=== PATIENT | male | born 1935 | race Caucasian/White ===

== ENCOUNTER 2020-11-30 15:19 | Inpatient (IN) | payer OTHER ==
[~2020-11-30] VITALS: Ht 190.5 cm; Wt 68.6 kg
[2020-11-30 15:35] LABS: Calcium, Ionized (POC) 1.12 mmol/L (1.10-1.46); Chloride (POC) 110 mmol/L (98-108); Creatinine (POC) 1.8 mg/dL (0.8-1.3); Glucose (ISTAT POC) 120 mg/dL (70-99); Hemoglobin (POC) 15.3 g/dL (13.5-17.5); Potassium (POC) 4.3 mmol/L (3.5-5.5); Sodium (POC) 141 mmol/L (135-148); Total CO2 (POC) 21 mmol/L (21-32)
[2020-11-30] MEDS ORDERED: MIRT15 PO (16:00)
[2020-11-30] MEDS ORDERED: ASPIR 8181 M1 PO (16:00)
[2020-11-30] MEDS ORDERED: CARV3.125 PO ×2 (16:01→16:02)
[2020-11-30] MEDS ORDERED: Magnesium Oxid420 MG PO (16:02)
[2020-11-30] MEDS ORDERED: TAMS.4ER PO (16:03)
[2020-11-30] MEDS ORDERED: FINA5 PO (16:03)
[2020-11-30 16:24] LABS: BASOPHILS ABSOLUTE AUTO 0.04 K/mm3 (0.00-0.23); BASOPHILS PERCENT AUTO 0 % (0-2); EOSINOPHILS ABSOLUTE AUTO 0.01 K/mm3 (0.00-0.68); EOSINOPHILS PERCENT AUTO 0 % (0-6); Hematocrit 44.8 % (37.0-53.0); Hemoglobin 15.1 g/dL (13.5-17.5); IMMATURE GRAN ABSOLUTE AUTO 0.08 K/mm3 (0.00-0.10); IMMATURE GRAN PERCENT AUTO 1 % (0-1); LYMPHOCYTES ABSOLUTE AUTO 0.86 K/mm3 (0.84-5.20); LYMPHOCYTES PERCENT AUTO 5 % (21-46); MONOCYTES ABSOLUTE AUTO 1.33 K/mm3 (0.16-1.47); MONOCYTES PERCENT AUTO 8 % (4-13); Mean Corpuscular HGB 31.5 pg (26.0-34.0); Mean Corpuscular HGB Conc 33.7 g/dL (31.5-36.5); Mean Corpuscular Volume 93 fL (80-100); Mean Platelet Volume 11.7 fL (9.1-12.4); NEUTROPHILS ABSOLUTE AUTO 15.21 K/mm3 (1.96-9.15); NEUTROPHILS PERCENT AUTO 87 % (41-73); Platelet Count 197 K/mm3 (150-400); RDW Coefficient Variation 12.1 % (11.7-14.2); RDW Standard Deviation 41.8 fL (35.1-46.3); White Blood Cell Count 17.53 K/mm3 (4.00-11.30)
[2020-11-30 16:37] LABS: Source, Urine Catheter
[2020-11-30 16:40] LABS: Albumin, Blood 3.6 g/dL (3.4-5.0); Albumin/Globulin Ratio 0.9 (0.8-1.8); Bilirubin, Total 0.9 mg/dL (0.1-1.0); Bun/Creatinine Ratio 27.8 (12.0-20.0); Calcium, Blood 9.3 mg/dL (8.5-10.1); Creatinine, Blood 1.58 mg/dL (0.60-1.20); Globulin, Blood 4.1 g/dL (2.2-4.0); Potassium, Blood 4.3 mmol/L (3.5-5.5); Total Protein, Blood 7.7 g/dL (6.4-8.2); Troponin I 0.036 ng/mL (0.000-0.040)
[2020-11-30 16:52] LABS: Appearance, Urine Clear (Clear); Bilirubin, Urine Neg (Neg); Blood, Urine 3+ (Neg); Color, Urine Amber (P-Yellow); Glucose Qualitative, Urine Neg (Neg); Ketones, Urine 1+ (Neg); Leukocyte Esterase, Urine 3+ (Neg); Nitrite, Urine Neg (Neg); Protein, Urine 2+ (Neg); Urobilinogen, Urine NORM (Normal)
[2020-11-30 17:05] LABS: White Blood Cells, Urine 50-100 /hpf (0-5)
[2020-11-30 17:06] LABS: Bacteria Many /hpf; Squamous Epithelial Cells Not Seen /hpf (Few)
--- NOTE | 2020-11-30 17:33 | NUR ---
ED Palliative Care Consult Spoke with Dr Grant and discussed case. Pt's daughter may benefit from discussion regarding goals of care and options for treatment. Pt resting on gurney upon arrival. Pt is pleasantly confused and is A&OX2. Pt appears comfortable with no S/S of distress at this time. Pt's daughter Lori is at bedside. Engaged in therapeutic listening as Lori reports at baseline Pt is independent with ambulation, dressing, bathing, eating, and is continent of bowel and bladder. Over the last couple of days Pt has become increasingly confused and weak. Pt not able to transfer or ambulate. 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 Continued therapeutic listening as Lori reports she is not in a position to care for Pt at this time. She is unable to get Pt off the floor by herself if he falls. Pt lives with Lori. Lori reports being Pt's MPOA. Obtained copies of Pt's advanced directive from Lori and will deliver copy to medical records. Lori reports Pt would be ok with brief hospital stay and basic treatment but would not want anything invasive. Pt is a DNR and No Intubation. Lori expresses appreciation of visit and reports no other concerns at this time. Spoke with Dr Grant. He reports Pt will be admitted. Relayed Pt's wishes for basic medical treatment. Palliative Care will F/U for supportive visits once admitted to the floor.
--- NOTE | 2020-12-01 07:26 | NUR ---
evening or night nurse supervisor summary Kevin was awake all night struggling to get oob and "go home". Multiple large incontinent stools soft/mushy brown in color. Patient did manage to pull two IV's overnight, and was quite distraught at 3rd attempt (successful) placing a third in the left wrist. HR when checked apically was irregular in the 110-130 range as it was in ER. one set of VS taken around 0530 with capsule registered a rate of 172. HR manually checked minutes prior more in tune with his regular rate. Oncoming RN given this information in report stated she would like tele placed on patient and will discuss it with hospitalist.
[2020-12-01 12:24] LABS: BASOPHILS ABSOLUTE AUTO 0.05 K/mm3 (0.00-0.23); BASOPHILS PERCENT AUTO 0 % (0-2); EOSINOPHILS ABSOLUTE AUTO 0.02 K/mm3 (0.00-0.68); EOSINOPHILS PERCENT AUTO 0 % (0-6); Hematocrit 45.4 % (37.0-53.0); Hemoglobin 15.4 g/dL (13.5-17.5); IMMATURE GRAN ABSOLUTE AUTO 0.05 K/mm3 (0.00-0.10); IMMATURE GRAN PERCENT AUTO 0 % (0-1); LYMPHOCYTES PERCENT AUTO 5 % (21-46); MONOCYTES ABSOLUTE AUTO 1.23 K/mm3 (0.16-1.47); MONOCYTES PERCENT AUTO 8 % (4-13); Mean Corpuscular HGB 32.5 pg (26.0-34.0); Mean Corpuscular HGB Conc 33.9 g/dL (31.5-36.5); Mean Corpuscular Volume 96 fL (80-100); Mean Platelet Volume 11.2 fL (9.1-12.4); NEUTROPHILS ABSOLUTE AUTO 13.08 K/mm3 (1.96-9.15); NEUTROPHILS PERCENT AUTO 87 % (41-73); Platelet Count 169 K/mm3 (150-400); RDW Coefficient Variation 12.2 % (11.7-14.2); RDW Standard Deviation 43.3 fL (35.1-46.3); Red Blood Cell Count 4.74 M/mm3 (4.30-5.90); White Blood Cell Count 15.13 K/mm3 (4.00-11.30)
[2020-12-01 12:52] LABS: Bun/Creatinine Ratio 25.7 (12.0-20.0); Calcium, Blood 8.9 mg/dL (8.5-10.1); Creatinine, Blood 1.71 mg/dL (0.60-1.20); Magnesium, Blood 2.6 mg/dL (1.6-2.4); Potassium, Blood 4.2 mmol/L (3.5-5.5)
[2020-12-01] MEDS ORDERED: THERA-D2000 UNIT PO (14:54)
--- NOTE | 2020-12-01 17:14 | NUR ---
SHIFT SUMMARY PT IS AO TO SELF AND CONFUSED. PT DENIES PAIN, N/V, SOB. PT CONTINUES TO HAVE SOFT STOOLS. PT IS IN BL WRIST RESTRAINTS DUE TO PULLING X3 IVS. TELE CONTINUES TO RUN AFIB 110-120 CURRENTLY, BUT WENT HIGH 180S WHICH RESOLVED WITH FLUID BOLUS. PT HAS GOOD APPETITE. NO PROCEDURES DONE THIS SHIFT. PT DID NOT HAVE VISITORS. PLAN IS FOR PT TO TRANSFER TO ROOM 351. PT IS IN BED, ALARM ON, LOW POSITION.
--- NOTE | 2020-12-01 18:35 | NUR ---
PT RECEIVED FROM RM 130. REPORT RECEIVED FROM DAY RN. SETTLED PT TO BED AND ROOM. HE STATES IS RETIRED [employer]. CALLED TELE. THEY STATES HE IN 130'S TO 140'S. HANGING AT 130'S NOW. DISCUSSED WITH DR. LERMA. ORDERS FOR BOLUS AND INCREASE RATE TO 125/ NO OTHER CONCERNS NOTED . IS IN WRIST RESTRAINTS FOR PULLING IVS X3 . BED IN LOW POSITION, CALL LITE IN REACH, BED ALARM ON FOR SAFETY
--- NOTE | 2020-12-02 04:44 | NUR ---
SHIFT SUMMARY PT ALERT TO SELF ONLY. SLEPT OFF AND ON THROUGH THE NIGHT. PT VOIDING VERY LITTLE. LOWER ABD DISTENDED AND FIRM. PT REPORTING PAIN WHEN PALPATED. BLADDER SCAN READING >[address] CEE NOTIFIED WITH ORDERS TO STRAIGHT CATH X 1 AND BLADDER SCAN 6 HOURS LATER. STRAIGHT CATH WITH 975 MLS OUT, BLOOD CLOTS PRESENT WITH INITIAL START OF FLOW OF URINE. URINE BROWN IN COLOR. PT ON TELEMETRY. HEART RATE AT START OF SHIFT AFTER 500 CC BOLUS AFIB 108. HEART RATE INCREASED TO 130'S-140'S AND THEN 150'S-160'S. NEW ORDER FOR ONE TIME DOSE OF METOPROLOL TARTRATE 12.5 MG. PT ALSO RESTLESS AT THE TIME. REPOSITIONED FOR COMFORT. HEART RATE DOWN TO 110 WITH LAST CHECK. ATTEMPTED MANY TIMES TO GET PT TO EAT DINNER. PT DECLINED. BILATERAL WRIST RESTRAINTS REMAINED ON TO PROTECT LINES. VITAL SIGNS STABLE. PT RESTING IN BED AT THIS TIME. WILL CONTINUE TO MONITOR.
[2020-12-02 04:51] LABS: BASOPHILS ABSOLUTE AUTO 0.04 K/mm3 (0.00-0.23); BASOPHILS PERCENT AUTO 0 % (0-2); EOSINOPHILS ABSOLUTE AUTO 0.03 K/mm3 (0.00-0.68); EOSINOPHILS PERCENT AUTO 0 % (0-6); Hematocrit 39.6 % (37.0-53.0); Hemoglobin 13.4 g/dL (13.5-17.5); IMMATURE GRAN ABSOLUTE AUTO 0.04 K/mm3 (0.00-0.10); IMMATURE GRAN PERCENT AUTO 0 % (0-1); LYMPHOCYTES ABSOLUTE AUTO 0.68 K/mm3 (0.84-5.20); LYMPHOCYTES PERCENT AUTO 5 % (21-46); MONOCYTES ABSOLUTE AUTO 0.91 K/mm3 (0.16-1.47); MONOCYTES PERCENT AUTO 7 % (4-13); Mean Corpuscular HGB 32.8 pg (26.0-34.0); Mean Corpuscular HGB Conc 33.8 g/dL (31.5-36.5); Mean Corpuscular Volume 97 fL (80-100); Mean Platelet Volume 11.3 fL (9.1-12.4); NEUTROPHILS ABSOLUTE AUTO 10.81 K/mm3 (1.96-9.15); NEUTROPHILS PERCENT AUTO 87 % (41-73); Platelet Count 143 K/mm3 (150-400); RDW Coefficient Variation 12.3 % (11.7-14.2); RDW Standard Deviation 44.5 fL (35.1-46.3); Red Blood Cell Count 4.08 M/mm3 (4.30-5.90); White Blood Cell Count 12.51 K/mm3 (4.00-11.30)
[2020-12-02 05:09] LABS: Albumin, Blood 2.4 g/dL (3.4-5.0); Anion Gap 7 mmol/L (6-16); Blood Urea Nitrogen 53 mg/dL (8-24); Bun/Creatinine Ratio 22.7 (12.0-20.0); CO2, Blood 19 mmol/L (21-32); Chloride, Blood 116 mmol/L (98-108); Creatinine, Blood 2.33 mg/dL (0.60-1.20); Glomerular Filtration Rate 27 (60-); Glucose, Blood 109 mg/dL (70-99); Magnesium, Blood 2.4 mg/dL (1.6-2.4); Phosphorus, Blood 3.6 mg/dL (2.5-4.9); Potassium, Blood 4.2 mmol/L (3.5-5.5); Sodium, Blood 142 mmol/L (136-145)
--- NOTE | 2020-12-02 08:25 | NUR ---
BLADDER SCAN 442 CC
--- NOTE | 2020-12-02 10:00 | NUR ---
PT PLEASANTLY CONFUSED DENIES PAIN. ALERT TO SELF, DENIES OR CHILDREN, WHEN ASK WHO IS TED, HE SAYS HIS DAUGHTER. ATTEMPTED TO GET PT UP TO URINATE THIS AM. VERY STIFF. HAD HARD TIME MOVING. ABLE TO STAND, BUT NOT BALANCE WELL. H/R IRREG, NO MURMER NOTED. NO PACER NOTICED. PER TELE AFIB PRESENTLY 136. HAS TRENDED UP THIS AM FOR LAST FEW HOURS. BT X4 LAST BM NOT KNOWN BY PT. PT HAS HAD SMALL FORMED BROWN STOOL THIS MOMENT. VIODS SCANT IN ATTENDS. DID NOT URINATE WHEN STOOD UP. SMALL DROPS DARK RED LIQUID ONLY . [place] PLACED PER DR ORDERS. DID DRAIN OUT 4-500 INTO BAG. DARK TEA COLORED FLUID. BED INLOW POSITION, CALL LITE IN REACH, BED ALARM ON FOR SAFETY
[2020-12-02 10:45] LABS: Source, Urine Catheter
[2020-12-02 11:00] LABS: Appearance, Urine Clear (Clear); Bilirubin, Urine Neg (Neg); Blood, Urine 5+ (Neg); Color, Urine Yellow (P-Yellow); Glucose Qualitative, Urine Neg (Neg); Ketones, Urine 1+ (Neg); Leukocyte Esterase, Urine 1+ (Neg); Nitrite, Urine Neg (Neg); Protein, Urine 3+ (Neg); Specific Gravity, Urine 1.015 (1.003-1.022); Urobilinogen, Urine NORM (Normal)
--- NOTE | 2020-12-02 11:04 | NUR ---
DR NOTIFIED OF SCROTAL AND INGUINAL SWELLING, URINE RETENTION THIS AM. ORDERS WERE GIVEN FOR U/S AND [place] CATH. DONE.
[2020-12-02 11:20] LABS: Bacteria Few /hpf; Red Blood Cells, Urine 25-50 /hpf (0-2); Squamous Epithelial Cells Rare /hpf (Few)
--- NOTE | 2020-12-02 13:30 | NUR ---
1330 TELE CALLED, PT HAD 6 BET RUN VTAC. PT RESTING, ASYMPTOMATIC. CURRENTLY AFIB AT 114.
--- NOTE | 2020-12-02 14:33 | NUR ---
PLACED EGG CRATE UNDER PT FOR COMFORT. PT AWAKENS TO TALK. ANSWERS QUESTIONS. SOME APPROP AND SOME NOT. NEW ABX STARTED PER DR ORDERS. [place] DRAINING DARK BROWN FLUID. DR WAS NOTIFIED AT [place] INSERTION. BED IN LOW POSITION, CALL LITE IN REACH, BED ALARM ON FOR SAFETY
--- NOTE | 2020-12-02 15:19 | NUR ---
Met with pt and his daughter Lori who has been primary care for him for 10 years. Pt has advanced dementia, lives with his daughter and has been quite physically healthy despite the dementia. Lori noted he recently became increasingly confused and wasn't urinating. She brought him to the ED, and he was admitted with Sepsis/UTI. He is extremely weak, and unable to make his wants and needs known at this time. Lori is tearful at this visit, telling me she feels like this might be the "beginning of the end" for her dad. She states she knows it's time to work on placing him, as she has just started a new job as a nurse at the [employer], she is currently in her probationary period and has no time off yet. We discussed in detail what hospice services entail, and she is hoping to get pt placed at the [facility] if possible, if he qualifies for hospice. It's likely he will, based on dementia x's 10 years, BMI, and latest issues. However, he is not ready for discharge from the hospital yet, and Lori states if her dad doesn't begin to improve, she is interested in looking at the options sooner than later instead of "just prolonging things". She states quality of life is of utmost importance. Plan to review pt's case in 2 days, and remain available for supportive care visits with/for Lori.
--- NOTE | 2020-12-02 16:09 | NUR ---
PT PLEASANTLY CONFUSED. DOES AWAKEN TO TOUCH OR TALK. DOES FALL ASLEEP READILY. DAUGHTER IN TO VISIT TODAY. HAD GOOD TALK WITH HER. STATES HE INDEPENDANT BUT CONFUSED AT BASELINE . DID GO TO [facility] FOR BREAKFAST LAST WEEK. ABLE TO AMBULATE. CARE FOR BASIC NEEDS ON OWN. SHE IS HOPING THIS WILL TURN AROUND FOR HIM UTI CLEARS. DID HAVE 6 BEAT RUN VTAC TODAY. ASYMPTOMATIC. KAREN FROM [facility] ON BOARD. DR AWARE OF CONDITION. NO NEW CONCERNS NOTED TODAY BED IN LOW POSITIOIN, CALL LITE IN REACH, BED ALARM ON FOR WILTON
--- NOTE | 2020-12-02 18:14 | NUR ---
PT JUST WOKE UP. TALKING SENSE. DAUGHTER IN ROOM. PT EATING DINNER WITHOUT ASSISTANCE. PT QUITE PLEASANT AND COOP. HANDS NOW STEADY, BED IN LOW POSITION, CALL LITE IN REACH, BED ALARM ON FOR SAFETY
--- NOTE | 2020-12-02 19:11 | NUR ---
1830 pt h/r up to 170-180. called , orders for metoprolol coming. gave metoprolol. h/r after admin is one-teens to 120. bp 105/53 passed info to ankush rodriguez. pt is calm and talking. eating dinner. bed in low position, call lite in reach, bed alarm on for safety
--- NOTE | 2020-12-03 04:41 | NUR ---
SHIFT SUMMARY PT MUCH MORE ALERT THIS EVENING. ANSWERING QUESTIONS APPROPRIATELY. PT AT BELIEVED BASELINE LEVEL OF DEMENTIA. PT SLEPT MUCH OF THE NIGHT. WOKE EASILY WHEN SPOKEN TO. [place] CATHETER PATENT AND DRAINING. URINE DARK AND BROWN IN COLOR. PT REMAINED OUT OF RESTRAINTS. DID NOT ATTEMPT TO GET OUT OF BED OR PULL ON LINES. TELEMETRY READING AFIB IN THE 100'S-110'S. PT REPORTS FEELING MUCH IMPROVED TONIGHT. VITAL SIGNS STABLE. WILL CONTINUE TO MONITOR AND REPORT TO DAY RN.
[2020-12-03 05:16] LABS: BASOPHILS ABSOLUTE AUTO 0.04 K/mm3 (0.00-0.23); BASOPHILS PERCENT AUTO 1 % (0-2); EOSINOPHILS ABSOLUTE AUTO 0.61 K/mm3 (0.00-0.68); EOSINOPHILS PERCENT AUTO 7 % (0-6); Hematocrit 36.9 % (37.0-53.0); Hemoglobin 12.3 g/dL (13.5-17.5); IMMATURE GRAN ABSOLUTE AUTO 0.03 K/mm3 (0.00-0.10); IMMATURE GRAN PERCENT AUTO 0 % (0-1); LYMPHOCYTES ABSOLUTE AUTO 0.86 K/mm3 (0.84-5.20); LYMPHOCYTES PERCENT AUTO 10 % (21-46); MONOCYTES PERCENT AUTO 7 % (4-13); Mean Corpuscular HGB 32.1 pg (26.0-34.0); Mean Corpuscular HGB Conc 33.3 g/dL (31.5-36.5); Mean Corpuscular Volume 96 fL (80-100); Mean Platelet Volume 11.7 fL (9.1-12.4); NEUTROPHILS ABSOLUTE AUTO 6.65 K/mm3 (1.96-9.15); NEUTROPHILS PERCENT AUTO 76 % (41-73); Platelet Count 136 K/mm3 (150-400); RDW Coefficient Variation 12.4 % (11.7-14.2); RDW Standard Deviation 43.5 fL (35.1-46.3); Red Blood Cell Count 3.83 M/mm3 (4.30-5.90); White Blood Cell Count 8.79 K/mm3 (4.00-11.30)
[2020-12-03 05:31] LABS: Albumin, Blood 2.1 g/dL (3.4-5.0); Anion Gap 5 mmol/L (6-16); Blood Urea Nitrogen 43 mg/dL (8-24); Bun/Creatinine Ratio 28.3 (12.0-20.0); CO2, Blood 21 mmol/L (21-32); Calcium, Blood 7.6 mg/dL (8.5-10.1); Chloride, Blood 118 mmol/L (98-108); Creatinine, Blood 1.52 mg/dL (0.60-1.20); Glomerular Filtration Rate 44 (60-); Glucose, Blood 102 mg/dL (70-99); Phosphorus, Blood 2.4 mg/dL (2.5-4.9); Potassium, Blood 4.1 mmol/L (3.5-5.5); Sodium, Blood 144 mmol/L (136-145)
--- NOTE | 2020-12-03 07:51 | NUR ---
COREG GIVEN EARLY FOR HIGH HEART RATE. WILL RECHECK.
--- NOTE | 2020-12-03 08:45 | NUR ---
LEFT MESSAGE ON DR. COTO VOICE MAIL. HEART RATE AFIB 130'S. YESTERDAY AND DAY BEFORE WENT HIGH 170'S. MEDS FOR HEART GIVEN EARLY. NO PRN. AWAITING ORDERS OR CALL BACK.
--- NOTE | 2020-12-03 16:45 | NUR ---
LEFT MESSAGE ON VOICE MAIL. PATIENT HEART RATE HAS BEEN 130'S FOR PAST 20 MINUTES. BLD PRESSURE 108/67 DOES SHE STILL WANT LOPRESSOR GIVEN.?? AWAITING CALL BACK OR ORDERS.
--- NOTE | 2020-12-03 17:31 | NUR ---
ALERT TO SELF AND FAMILY. DEMENTIA. REPEATS QUESTIONS OFTEN BEFORE RN EVEN LEAVES ROOM. PULLS AT CAROLINA. URINE BROWN TO RED. BLOOD CLOTS WHEN CAROLINA WAS PLACED. MEDS ADJUSTED FOR HEART RATE. DAUGHTER WANTS PATIENT TO [facility] GO TO [facility] [place]OVE FROM [place] TO [place].TELE ON. [facility]
--- NOTE | 2020-12-03 18:24 | NUR ---
LEFT MESSAGE ON VOICE MAIL ABOUT PATIENT HEART RATE. COREG GIVEN 1715 AND HEART RATE HAS BEEN 130'S WITH INFREQUENT DROP. B.P. 119/65. HAVE NOT GIVEN LOPRESSOR?? PATIENT BLD PRESSURE WENT LOW YESTERDAY WHEN GIVEN LOPRESSOR. AWAITING ANY ORDERS.
[2020-12-04 05:50] LABS: BASOPHILS ABSOLUTE AUTO 0.05 K/mm3 (0.00-0.23); BASOPHILS PERCENT AUTO 1 % (0-2); EOSINOPHILS ABSOLUTE AUTO 0.64 K/mm3 (0.00-0.68); EOSINOPHILS PERCENT AUTO 9 % (0-6); Hematocrit 36.6 % (37.0-53.0); Hemoglobin 12.2 g/dL (13.5-17.5); IMMATURE GRAN ABSOLUTE AUTO 0.02 K/mm3 (0.00-0.10); IMMATURE GRAN PERCENT AUTO 0 % (0-1); LYMPHOCYTES ABSOLUTE AUTO 1.03 K/mm3 (0.84-5.20); LYMPHOCYTES PERCENT AUTO 15 % (21-46); MONOCYTES ABSOLUTE AUTO 0.59 K/mm3 (0.16-1.47); MONOCYTES PERCENT AUTO 9 % (4-13); Mean Corpuscular HGB 31.9 pg (26.0-34.0); Mean Corpuscular HGB Conc 33.3 g/dL (31.5-36.5); Mean Corpuscular Volume 96 fL (80-100); Mean Platelet Volume 11.8 fL (9.1-12.4); NEUTROPHILS ABSOLUTE AUTO 4.56 K/mm3 (1.96-9.15); NEUTROPHILS PERCENT AUTO 66 % (41-73); Platelet Count 137 K/mm3 (150-400); RDW Coefficient Variation 12.2 % (11.7-14.2); RDW Standard Deviation 42.3 fL (35.1-46.3); Red Blood Cell Count 3.83 M/mm3 (4.30-5.90); White Blood Cell Count 6.89 K/mm3 (4.00-11.30)
[2020-12-04 06:14] LABS: Calcium, Blood 7.6 mg/dL (8.5-10.1); Creatinine, Blood 1.22 mg/dL (0.60-1.20)
--- NOTE | 2020-12-04 07:20 | NUR ---
85 year old [place] with Sepsis UTI bladder outlet obstruction continues on IV fluid at 50 ml hr & IV antibiotics to treat. [place] He is confused poor historian & he had pulled at pozo cath multiple times with calls from remote camera monitoring to prevent furtherinjury pozo cath removal. Irrigated pozo with 50 ml ns to keep patent after PT CO needing to urinate. good relief of bladder spasm. Tele monitor with multiple calls for tachycardia. Cooperative with [facility] whole in [facility]. Fall precautions observed. On coreg for AFIB RVR TID, dose at 2 am.
--- NOTE | 2020-12-04 10:25 | NUR ---
UPDATED DAUGHTER, CEASAR, ON STATIS.
--- NOTE | 2020-12-04 16:57 | NUR ---
PHYSICAL THERAPY EVALUATED PATIENT. WHEN P.T. SAT PATIENT ON SIDE OF BED HEART RATE WENT UP TO 150 AFIB. WHEN PATIENT WAS LAID BACK DOWN HEART RATE TOOK ABOUT 2-3 MINUTES TO GO DOWN TO 110. WCTM
--- NOTE | 2020-12-04 18:34 | NUR ---
SINCE PHYSICAL THERAY DIFFICULT TO GET PATIENTS HEART RATE UNDER CONTROL. WAS GIVEN SCHEDULED CORG WHICH HELPED A LITTLE. GIVEN PRN LOPRESSOR WHICH HELPED. PATIENT HAD NO SYMPTOMS. ALERT TO SELF AND NOT NECESSARY FAMILY PER P.T. PATIENT TOLD HER "HE LIVES ALONE AND DOES NOT HAVE ANY FAMILY." STILL PULLS AT LINES. [place] PATENT AND DRAINING YELLOW COLORED URINE WITH SOME SMALL CLOTS. IV SALINE LOCKED. TELE ON. [facility].
--- NOTE | 2020-12-04 20:51 | NUR ---
Pt with advanced dementia , can be very pleasant & calm but also shows no insight into actions. PT was remote camera monitoring which was removed around 1700 per Day RN report. PT set up with water pudding ice cream post dinner. RN frequently in PT room & got call from telegraphic typewriter operator chief that HR sustained around 150 for several minutes & reached up to 170 momentarily. Entered PT room which was dark per his request & he was pulling on his pozo cath saying pull it out & had cath strap off & pant leg up jerking on cath. He had pulled out his IV saline lock which hed been secure with coban. Dressed IV site & will restart saline lock per tele needs & IV antibiotics Q 6 hours. Pulse rate down to around 110 now. Has 2.5 mg IV lopresser around 1840 with 1st pulse check per tele pvc monitor was 111. Medicated with HS meds whole in icecream, fed ice cream encouraged oral fluids. High fall risk precautions in place with PT with AFib with RVR on TID Coreg & Q 6 hr PRN lopressor.
--- NOTE | 2020-12-04 21:32 | NUR ---
saline lock restart lt wrist & secured with dressing & included tapes & kerlet & stockinette applied. Remided PT what IV access is for & he agrees not to remove. PT had also tore off ID band & DNR braclet. Reapplied name band to lt ankle & DNR band rt wrist.
--- NOTE | 2020-12-05 02:25 | NUR ---
85 year old Male [employer] [place] resting quietly with pozo cath patent & draining clear yellow urine. Scrotum continues edematous skin care provided. PT has high fall risk, not attempting to climb out of bed this shift. PT does not use call spain, able to communicate. Medicated with PRN lopressor 2.5 mg IV with coreg for HR 111. Await response. Tele monitoring continues rate currently 95 afib. DTR involved in DC plan, would like [facility] placement if possible. PT denies pain but has pain with touch of penis or scrotum. Currently not mobile.
--- NOTE | 2020-12-05 17:07 | NUR ---
SHIFT SUMMARY PATIENT DENIES PAIN, NAUSEA, AND SHORTNESS OF BREATH. PATIENT PLEASANTLY CONFUSED BUT ABLE TO COMMUNICATE NEEDS. WORKED WITH PT TODAY, ABLE TO SIT ON SIDE OF BED AND STAND BRIEFLY BEFORE FATIGUE AND ELEVATED HEART RATE REQUIRED SESSION TO END. PLEASANT AND COOPERATIVE WITH CARE. PENDING [facility] HOSPICE DISCHARGE.
--- NOTE | 2020-12-06 05:35 | NUR ---
Elderly Male [place] with long hx of dementia who [place] with [place] & continues on IV abx for UTI sepsis. He had bladder outlet obstruction & coude cath placed to down drain. PT no longer pulling on pozo which drained 1200 ml clear yellow urine in 6 hours. PT has tele monitor & telecommunicator supervisor reported pulse of 150s afib & pt was sutting up in bed for first time since I have worked with him in last 3 nights. I stood him at bedside with FWW & gaitbelt then got up to bedside chair for around a hour. PT has a fib with rvr pulse increases with activity & IV lopresser 2.5 mg given x 1 for such with helpful effect. PT had 1 ten beat run of vtach called by biomedical technician, PT sleeping with mild movement. He rouses easily & able to communicate. Did well getting up to bedside chair with cues fww & gait belt. Takes supplement ensure with setup & cues, fed self half a banana. Pozo patent does not attempt to remove tonight.
--- NOTE | 2020-12-06 09:37 | NUR ---
Supportive Visit Spoke with RNs Rachelle and Elisabet. Pt exoeriences intermittent hallucinations. Pt incontinent of bowel and has Amaya catheter placed. Pt's appetite is poor. Pt requires assistance with bathing, dressing, transfers. and ambulation. [facility] staff assessed [facility] yesterday to determine if appropriate for their facility. Pt resting in bed with breakfast in front of hime. Meal tray looks barely touched. Pt reports no appetite. Pt is pleasantly confused and is A&O to self and family. Pt denies pain and dyspnea. No S/S of distress at this time. Palliative Care will remain available.
--- NOTE | 2020-12-06 17:25 | NUR ---
PATIENT A/O TO SELF AND FAMILY. [place] TO GRAVITY WITH ADEQUATE U/O. VSS, A-FIB ON TELE, HR UP TO 120 WITH ACTIVITY. UP TO BSCX1 THIS SHIFT WITH GB AND 2 ASSIST. SKIN FRAGILE, WITH SCATTERED BRUISES AND SCABS. LARGE BM THIS SHIFT, PATIENT CONTINENT OF BOWEL. RECEIVING AMPICILLIN TO TREAT UTI. DAUGHTER WORKING WITH CARE MANAGERS TO FIND DATA MODELER PLACEMENT FOR PATIENT, HOSPICE HAS BEEN DISCUSSED.
--- NOTE | 2020-12-07 02:37 | NUR ---
LIVING SPECIALIST SUMMARY PATIENT SLEPT WELL THROUGH THE NIGHT DESPITE BEING WOKEN UP MULTIPLE TIMES FOR SCHEDULED MEDICATIONS. NO COMPLAINTS OF PAIN OR DISCOMFORT. [place] CATHETER DRAINING ADEQUATE AMOUNTS OF CLEAR YELLOW URINE. NO SIGNIFICANT CHANGES OVERNIGHT
[2020-12-07 09:11] LABS: BASOPHILS ABSOLUTE AUTO 0.04 K/mm3 (0.00-0.23); BASOPHILS PERCENT AUTO 1 % (0-2); EOSINOPHILS ABSOLUTE AUTO 0.59 K/mm3 (0.00-0.68); EOSINOPHILS PERCENT AUTO 8 % (0-6); Hematocrit 39.6 % (37.0-53.0); Hemoglobin 13.6 g/dL (13.5-17.5); IMMATURE GRAN ABSOLUTE AUTO 0.03 K/mm3 (0.00-0.10); IMMATURE GRAN PERCENT AUTO 0 % (0-1); LYMPHOCYTES ABSOLUTE AUTO 0.84 K/mm3 (0.84-5.20); LYMPHOCYTES PERCENT AUTO 11 % (21-46); MONOCYTES ABSOLUTE AUTO 0.59 K/mm3 (0.16-1.47); MONOCYTES PERCENT AUTO 8 % (4-13); Mean Corpuscular HGB 32.2 pg (26.0-34.0); Mean Corpuscular HGB Conc 34.3 g/dL (31.5-36.5); Mean Corpuscular Volume 94 fL (80-100); Mean Platelet Volume 10.9 fL (9.1-12.4); NEUTROPHILS ABSOLUTE AUTO 5.53 K/mm3 (1.96-9.15); NEUTROPHILS PERCENT AUTO 73 % (41-73); Platelet Count 191 K/mm3 (150-400); RDW Coefficient Variation 11.9 % (11.7-14.2); RDW Standard Deviation 41.1 fL (35.1-46.3); Red Blood Cell Count 4.22 M/mm3 (4.30-5.90); White Blood Cell Count 7.62 K/mm3 (4.00-11.30)
[2020-12-07 09:31] LABS: Anion Gap 3 mmol/L (6-16); Blood Urea Nitrogen 27 mg/dL (8-24); Bun/Creatinine Ratio 24.1 (12.0-20.0); CO2, Blood 28 mmol/L (21-32); Calcium, Blood 8.7 mg/dL (8.5-10.1); Chloride, Blood 107 mmol/L (98-108); Creatinine, Blood 1.12 mg/dL (0.60-1.20); Glomerular Filtration Rate >60 (60-); Glucose, Blood 120 mg/dL (70-99); Potassium, Blood 4.3 mmol/L (3.5-5.5); Sodium, Blood 138 mmol/L (136-145)
--- NOTE | 2020-12-07 17:40 | NUR ---
RN SHIFT SUMMARY: PT A/O TO SELF, PLEASANT AND COOPERATIVE THROUGHOUT THE DAY. ABLE TO ANSWER QUESTIONS APPROP AND FOLLOWS DIRECTIONS WELL. NO ACUTE CONCERNS AT THIS TIME. [place] PATENT AND DRAINING CLEAR YELLOW URINE. HAD LARGE SOFT FORMED BM TODAY.
--- NOTE | 2020-12-07 18:44 | NUR ---
PRN IV metoprolol given for HR sustained in the 150's at 1810. Pt denied CP, SOB, no signs of distress at time metoprolol given. HR now in the 130's at 1845. Will pass on at shift change.
--- NOTE | 2020-12-07 19:50 | NUR ---
PATIENT MORE ANXIOUS AND CONFUSED THAN LAST NIGHT. WANTS TO KNOW IF HE GETS TO TAKE HOME PILLOWS AND A LOAF OF BREAD WHEN HE GOES HOME. KEEPS ASKING WHAT HE IS SUPPOSED TO DO. ALARM ON. WILL CONTINUE CLOSE MONITORING. AT THIS POINT, PATIENT DENIES PAIN, AND HAS NO INTEREST IN GETTING OUT OF BED.
--- NOTE | 2020-12-08 06:24 | NUR ---
OTHER THAN EXTREME ANXIETY PRIOR TO BEDTIME, NO CHANGES NOTED OVERNIGHT. USUAL AMANDA WAS PLEASANT AND COOPERATIVE WITH CARE.
--- NOTE | 2020-12-08 17:14 | NUR ---
SHIFT SUMMARY: PATIENT A/O X3 WITH MODERATE CONFUSION. HE HAD A HEART RATE OF 120-130 THAT INCREASED TO 130-140. PATIENT WAS TREATED PER EMAR AND HIS HR WENT DOWN TO 105. PATIENT WAS PLSEANT AND GOT UP AND SAT IN THE CHAIR FOR 45 MINUTES TODAY. PATIENT DENIED ANY PAIN. BED IN LOWEST POSITION WITH CALL LIGHT IN REACH.
--- NOTE | 2020-12-08 17:31 | NUR ---
PLEASE REFER TO STUDENT NOTES FOR SHIFT SUMMARY.
--- NOTE | 2020-12-08 18:27 | NUR ---
PT HAD HIS HR INCREASE INTO THE 60s PER NEWSPAPER SUBSCRIPTION SOLICITOR. NOTIFIED DR KUMAR WHO MADE CHANGES TO METOPROLOL ORDER ON EMAR. NEW DOSE GIVEN AND NEWSPAPER SUBSCRIPTION SOLICITOR REPORTED HR DOWN TO 128. WILL CONTINUE TO MONITOR.
--- NOTE | 2020-12-08 22:41 | NUR ---
AWAKE, SEVERAL ATTEMPTS TO SIT UP AND TRY TO GET OUT OF BED. EACH TIMES HE DID SO, HIS HEART RATE WOULD INCREASE AND CO OP WOULD NOTIFY NURSE AND GET PT BEFORE THE BED ALARM WENT OFF. REDIRECTED MULTIPLE TIMES. GE DIAZ. CALL LIGHT IN REACH. WILL CONTINUE TO MONITOR
--- NOTE | 2020-12-09 03:23 | NUR ---
CHINESE TEACHER SUMMARY AWAKE AT INTERVALS, WITH MULTIPLE ATTEMPTS TO GET OUT OF BED, CAUGHT PRIOR TO EXITING BY NOTIFICATION OF TELE MONITOR HIS HR WOULD INCREASE INTO THE 150'S OR MORE. [place] DRAINING. PULLED TELE OFF AND LEADS WERE REPLACED. INTERMITTENT REDIRECTION OF ACTIONS. RAILS UP X 3. BED ALARM ON. CALL LIGHT IN REACH. WILL CONTINUE TO MONITOR
[2020-12-09 04:41] LABS: BASOPHILS ABSOLUTE AUTO 0.05 K/mm3 (0.00-0.23); BASOPHILS PERCENT AUTO 1 % (0-2); EOSINOPHILS PERCENT AUTO 9 % (0-6); Hemoglobin 12.6 g/dL (13.5-17.5); IMMATURE GRAN ABSOLUTE AUTO 0.05 K/mm3 (0.00-0.10); IMMATURE GRAN PERCENT AUTO 1 % (0-1); LYMPHOCYTES ABSOLUTE AUTO 1.18 K/mm3 (0.84-5.20); LYMPHOCYTES PERCENT AUTO 17 % (21-46); MONOCYTES ABSOLUTE AUTO 0.69 K/mm3 (0.16-1.47); MONOCYTES PERCENT AUTO 10 % (4-13); Mean Corpuscular HGB 32.1 pg (26.0-34.0); Mean Corpuscular HGB Conc 34.1 g/dL (31.5-36.5); Mean Corpuscular Volume 94 fL (80-100); Mean Platelet Volume 10.7 fL (9.1-12.4); NEUTROPHILS ABSOLUTE AUTO 4.46 K/mm3 (1.96-9.15); NEUTROPHILS PERCENT AUTO 64 % (41-73); Platelet Count 195 K/mm3 (150-400); RDW Standard Deviation 41.3 fL (35.1-46.3); Red Blood Cell Count 3.92 M/mm3 (4.30-5.90); White Blood Cell Count 7.03 K/mm3 (4.00-11.30)
[2020-12-09 05:01] LABS: Bun/Creatinine Ratio 24.8 (12.0-20.0); Calcium, Blood 8.9 mg/dL (8.5-10.1); Creatinine, Blood 1.25 mg/dL (0.60-1.20); Potassium, Blood 4.2 mmol/L (3.5-5.5)
--- NOTE | 2020-12-09 07:11 | NUR ---
ASSUMED CARE: PT RESTING IN BED AT THIS TIME. HR 100 ON TELE, TELE STAFF REPORTS RUN OF VTACH LAST NIGHT. WILL DISCUSS WITH MD. NO ACUTE NEEDS AT THIS TIME.
--- NOTE | 2020-12-09 16:46 | NUR ---
TELE HAS BEEN CALLING T/O THE DAY DUE TO PT'S HR GETTING TACHYCARDIC WITH ACTIVITY. STATES THAT PT'S DC PLAN IS FOR HOSPICE SO TELE IS NO LONGER NECESSARY. CHRONOMETER ASSEMBLER AND ADJUSTER AND INFRASTRUCTURE DESIGN ENGINEER AWARE
--- NOTE | 2020-12-09 17:32 | NUR ---
SHIFT SUMMARY: PL[facility] IS FOR [facility] TO [facility] WHEN B[facility]ECOMES AVAILABLE. PTS' DAUGHTER CAME TO VISIT TODAY AND WAS MADE AWARE OF PLANS. PT STARTED GETTING MORE RESTLESS AT 1630. GOT PT UP TO CHAIR IN HOPES OF CALMING AGITATION BUT PT CONTINUES TO TRY TO GET UP. TOLD PT WE WILL GET HIM BACK TO BED AFTER DINNER. CHAIR ALARM IN PLACE. NO ACUTE NEEDS AT THIS TIME.
--- NOTE | 2020-12-10 05:59 | NUR ---
SHIFT SUMMARY: AOX1, CONFUSED, IMPULSIVE. CONTINUED TO MESS WITH HIS CATHETER ASKING WHY IT WAS THERE. NEEDS CONSTANT REMINDERS AND RE-DIRECTION. FOLLOWS DIRECTION WELL AND WAS PLEASANT. DENIED ANY NEEDS THE ENTIRE SHIFT. VS WNL. CATHETER REMAINED PATIENT AND DRAINED CLOUDY YELLOW URINE. ENCOURAGED FLUID INTAKE. STILL RUNS AFIB WITH SOME TACHYCARDIA IN THE 110'S AT TIMES. ALWAYS DENIES CHEST PAIN OR DISCOMFORT. WENT TO SLEEP EARLY ON AND SLEPT WELL T/O THE NIGHT. CALL LIGHT REMAINED IN REACH AND FALL PRECAUTIONS IN PLACE. WILL REPORT TO DAYSHIFT.
[2020-12-10] MEDS ORDERED: AMPI250 PO (10:08)
[2020-12-10] MEDS ORDERED: Acetaminophen325 M1 PO (10:08)
[2020-12-10] MEDS ORDERED: OYSTER SHELL C500 MG PO (10:10)
[2020-12-10] MEDS ORDERED: BISA10S PR (10:10)
[2020-12-10] MEDS ORDERED: DOCU100 PO (10:13)
[2020-12-10] MEDS ORDERED: PROBIOTIC1 EA13 PO (10:14)
[2020-12-10] MEDS ORDERED: METO25 PO (10:15)
[2020-12-10] MEDS ORDERED: IMODIUM A-D2 M1 PO (10:15)
[2020-12-10] MEDS ORDERED: SENNA LAXATIVE8.6 MG PO (10:16)
[2020-12-10] MEDS ORDERED: ONDA4ODT MM (10:17)
--- NOTE | 2020-12-10 17:13 | NUR ---
SHIFT SUMMARY PT IS AOX3 AND FORGETFUL AT TIMES. PT DENIES PAIN, N/V, SOB. PT IS ONE ASSIST IN ROOM AND WORKED WITH PT/OT. PT APPETITE IS POOR TO MODERATE. [place] CATHETER REMOVED THIS SHIFT. PT HAS MINIMAL OUTPUT AND AWAITING PROPER VOID BY 1999. [facility] TO [facility] AFTER REMAINING AFEBRILE. PT DID NOT HAVE VISITORS THIS SHIFT. PT IS IN RECLINER, ALARM ON, CALL LIGHT IN REACH.
--- NOTE | 2020-12-10 20:30 | NUR ---
ASSUMED CARE. AOX1, HAPPY. HAS ATTEMPTED TWICE NOW TO URINATE. HE HAS ONLY GONE 10-15CC AT A TIME. HE DID HAVE A LARGE BM. DENIES NEEDING TO USE THE BATHROOM AGAIN. ABDOMIN IS SLIGHTLY TENDER BUT LITTLE DISTENTION EXCEPT FOR HIS HERNIA. WILL BLADDER SCAN AND IF NEEDED GET AN ORDER FOR CAR[place] PLACEMENT. LUNGS ARE CLEAR, HR REGULAR. NO PAIN. FAIR APPETITE. WILL CONTINUE TO MONITOR AND TREAT. CALL LIGHT IS IN REACH, BED ALARM IS ON.
[2020-12-10 21:23] LABS: Source, Urine Catheter
[2020-12-10 21:25] LABS: Appearance, Urine Clear (Clear); Bilirubin, Urine Neg (Neg); Blood, Urine 5+ (Neg); Color, Urine Yellow (P-Yellow); Glucose Qualitative, Urine Neg (Neg); Ketones, Urine Neg (Neg); Leukocyte Esterase, Urine 1+ (Neg); Nitrite, Urine Neg (Neg); Protein, Urine 2+ (Neg); Specific Gravity, Urine 1.015 (1.003-1.022); Urobilinogen, Urine NORM (Normal)
--- NOTE | 2020-12-10 21:28 | NUR ---
PATIENT UNABLE TO URINATE ENOUGH TO EMPTY THE BLADDER, WILL ONLY GO 10-15CC AT A TIME ENOUGH TO RELEIVE PRESSURE. BLADDER SCAN SHOWED GREATER THAN 435. MD NOTIFIED, ORDER OBTAINED, 14 COUDE [place] PLACED WITH YELLOW CLEAR URINE, GOOD FLOW ON RETURN. STAT LOCK PLACED. UA SENT TO LAB.
[2020-12-10 21:33] LABS: Amorphous Light (0-Heavy); Bacteria Few /hpf; Squamous Epithelial Cells Few /hpf (Few)
[2020-12-11 06:27] LABS: BASOPHILS ABSOLUTE AUTO 0.05 K/mm3 (0.00-0.23); BASOPHILS PERCENT AUTO 1 % (0-2); EOSINOPHILS ABSOLUTE AUTO 0.54 K/mm3 (0.00-0.68); EOSINOPHILS PERCENT AUTO 7 % (0-6); Hematocrit 36.2 % (37.0-53.0); Hemoglobin 12.2 g/dL (13.5-17.5); IMMATURE GRAN ABSOLUTE AUTO 0.05 K/mm3 (0.00-0.10); IMMATURE GRAN PERCENT AUTO 1 % (0-1); LYMPHOCYTES ABSOLUTE AUTO 1.14 K/mm3 (0.84-5.20); LYMPHOCYTES PERCENT AUTO 15 % (21-46); MONOCYTES ABSOLUTE AUTO 0.64 K/mm3 (0.16-1.47); MONOCYTES PERCENT AUTO 8 % (4-13); Mean Corpuscular HGB 31.6 pg (26.0-34.0); Mean Corpuscular HGB Conc 33.7 g/dL (31.5-36.5); Mean Corpuscular Volume 94 fL (80-100); Mean Platelet Volume 11.4 fL (9.1-12.4); NEUTROPHILS ABSOLUTE AUTO 5.17 K/mm3 (1.96-9.15); NEUTROPHILS PERCENT AUTO 68 % (41-73); Platelet Count 210 K/mm3 (150-400); RDW Standard Deviation 40.6 fL (35.1-46.3); Red Blood Cell Count 3.86 M/mm3 (4.30-5.90); White Blood Cell Count 7.59 K/mm3 (4.00-11.30)
--- NOTE | 2020-12-11 06:38 | NUR ---
SHIFT SUMMARY: AOX1, FOLLOWS DIRECTION. ABLE TO TRANSFER WITH 1 ASSIST. NO IMPULSIVINESS TONIGHT. NO PAIN OR DISCOMFORT. VS WNL, EXCEPT A HIGH PULSE OF 116 AT START OF SHIFT. CATHETER WAS REMOVED PRIOR TO START OF MY SHIFT. THIS WAS REPLACED DUE TO RETENTION AND ONLY VOIDING 10-15CC OF URINE AT A TIME. BLADDER SCAN AT TIME OF PLACEMENT WAS GREATER THAN 435. 14F COUDE PLACED AND UA SENT TO LAB. UA SHOWED FEW BACTERIA BUT WAS SENT TO CULTURE. URINE IS VERY DARK TEA COLORED, POSSIBLY DUE TO DEHYDRATION. ENCOURAGED MORE FLUIDS. BM NOTED THIS SHIFT. NO OTHER CHANGES TO NOTE. CALL LIGHT IN REACH, BED ALARM IS ON.
--- NOTE | 2020-12-11 08:00 | NUR ---
CALLED THE THIS AM; PT WILL GO WITH [facility] BECAUSE OF RETENTION
[2020-12-11 09:35] LABS: SARS-Cov-2 (COVID-19) PCR, MMC NEGATIVE (NEGATIVE)
--- NOTE | 2020-12-11 11:06 | NUR ---
REPORT GIVEN TO RN AT [facility]
--- NOTE | 2020-12-11 11:45 | NUR ---
PT DISCHARGE TO FACILITY. REPORT GIVEN TO RN. PT WITH CAR[place]INA PER . NO IV ACCESS; DISCHARGE PAPER WITH TRANSPORT.
== END 2020-12-11 11:41 | DRG 872 ==
LOC: ER 15:19 → PCU 17:52 → ER 17:52 → MEDS 17:52 → ENPENDDIS 12-06 15:40 → EDPENDDIS 12-06 15:40 → MEDS 12-09 16:22
PROVIDERS: Emergency Medicine; Family Medicine; Internal Medicine; ADMIT Internal Medicine
DX: A41.81 Sepsis due to Enterococcus (principal); I48.20 Chronic atrial fibrillation, unspecified; N13.8 Other obstructive and reflux uropathy; N17.9 Acute kidney failure, unspecified; G93.49 Other encephalopathy; N13.6 Pyonephrosis; I47.2 Ventricular tachycardia; R64 Cachexia; Z20.822 Contact with and (suspected) exposure to COVID-19; Z66 Do not resuscitate; N40.1 Benign prostatic hyperplasia with lower urinary tract symptoms; I11.0 Hypertensive heart disease with heart failure; R33.8 Other retention of urine; F03.90 Unspecified dementia, unspecified severity, without behavioral disturbance, psychotic disturbance, mood disturbance, and anxiety; Z79.82 Long term (current) use of aspirin; Z79.899 Other long term (current) drug therapy; R19.7 Diarrhea, unspecified; R65.20 Severe sepsis without septic shock; E86.0 Dehydration; I50.9 Heart failure, unspecified; Z78.1 Physical restraint status; Z82.1 Family history of blindness and visual loss; Z68.21 Body mass index [BMI] 21.0-21.9, adult
CPT/HCPCS: 36415; 51701; 51702; 70450; 71045; 76770; 80047; 80048; 80053; 80069; 81001; 83605; 83735; 84484; 85014; 85025; 87040; 87077; 87086; 87186; 93005; 93010; 96365; 97110; 97161; 97530; 99285-25; A9270; J0290; J0696; J1650; J7030; J7040; J7060; U0004